=== PATIENT | female | born 1945 | race Hispanic/Latino ===

== ENCOUNTER → 2018-03-10 | Outpatient (CLI) | payer OTHER ==
--- NOTE | 2018-03-10 12:08 | Diagnostic Imaging Report ---
EXAMINATION: CT of the abdomen and pelvis without contrast. TECHNIQUE: Spiral CT images of the abdomen and pelvis were performed from the lung bases to the lesser trochanters. No intravenous contrast was given per renal stone protocol. Coronal and sagittal reformatted images were obtained. COMPARISON: The report from a CT scan performed at an outside facility was available for review. CLINICAL HISTORY:Renal calculi DISCUSSION: ABSENCE OF INTRAVENOUS CONTRAST DECREASES SENSITIVITY FOR DETECTION OF FOCAL LESIONS AND VASCULAR PATHOLOGY. ABDOMEN/PELVIS: LOWER THORAX: Subsegmental atelectasis or scar in the dependent portions of the lower lobes. HEPATOBILIARY:No focal hepatic lesion or intrahepatic biliary ductal dilatation. The gallbladder is unremarkable. SPLEEN: No splenomegaly. PANCREAS: No focal masses or ductal dilatation. ADRENALS: 1.5 cm right adrenal nodule has average internal attenuation 35 Hounsfield units. No left adrenal nodule. KIDNEYS/URETERS: Punctate nonobstructing calculi in the bilateral lower pole collecting systems as seen on series 3 image 62. Additional punctate calculi in the region of the left interpolar collecting system may be vascular in nature or located within the collecting system (series 3 image 51). Subcentimeter hypoattenuating lesions within both kidneys too small to further characterize though likely to represent cysts. Nonspecific bilateral perinephric inflammation. No hydronephrosis. No ureteral or bladder calculi. PELVIC ORGANS/BLADDER: The urinary bladder is collapsed around a Salmon catheter. The uterus is neutral in position with arcuate artery calcifications. No adnexal mass. PERITONEUM/RETROPERITONEUM: No ascites. No pneumoperitoneum. LYMPH NODES: No pelvic sidewall, retroperitoneal, or mesenteric lymphadenopathy. VESSELS: Extensive atherosclerotic vascular calcifications of the abdominal aorta, iliacs systems, and major visceral branches without aneurysmal dilatation. GI TRACT: Large amount of fecal material within the rectum. Large bowel otherwise shows no distention or wall thickening. The appendix is not definitively identified. Gastrostomy catheter is present within the distal gastric body. No small bowel dilatation to suggest obstruction. BONES AND SOFT TISSUES: Soft tissue defect along the right lower quadrant abdominal wall with underlying herniated omental fat may reflect presence of a prior drainage catheter or distal enteric feeding tube. Calcified injection granulomata along the flanks. left paramedian sacral decubitus ulcer without definite underlying osseous destructive change. The bones are diffusely osteopenic with multilevel degenerative disc changes and facet arthropathy of the lumbar spine. Partially visualized healed fracture deformities of the right fifth, sixth, seventh, and eighth ribs. Probable chronic moderate anterior compression deformity of L4. L5 laminectomy defect. IMPRESSION: Punctate bilateral nonobstructing renal calculi as above. Urinary bladder is collapsed around a Salmon catheter. Large amount of stool throughout the large bowel with rectal distention. Atherosclerotic vascular disease. Sacral decubitus ulcer without definite evidence of underlying osteomyelitis. Right adrenal nodule has been stable dating to 2013 per outside report, and most likely represents an adenoma. Signed by: Dr. Lloyd Middleton M.D. on 03/10/2018 12:05 PM
== END ==
LOC: CT 11:08
PROVIDERS: ATTEND Urology
DX: N20.0 Calculus of kidney (principal)
CPT/HCPCS: 74176

== ENCOUNTER → 2018-06-15 | Day surgery (SDC) | payer MEDICARE, OTHER ==
[~2018-06-15] MED LIST: BELLADONNA/OPIUM 30 MG SUPP RC ONE; BISACODYL5 MG PO; BUPIVACAINE 0.5%/EPI 30 ML SDV INJ ONE; CLONIDINE HCL0.3 MG PO; DEXAMETHASONE SOD PHOS INJ 4 MG/ML VIAL ONE; FENTANYL CITRATE/PF 100MCG/2 ML INJ ONE; GENTAMICIN 80MG/NS 100 ML 100 ML IV ONE; IOPAMIDOL 610MG/1ML 300 MG/ML VIAL IV ONE; LANTUS 3ML100 UNITS/ SQ; LIDOCAINE HCL 2% LOCAL INJ 5 ML SDV VIAL INJ ONE; LIPITOR20 MG; ONDANSETRON HCL INJ 2MG/ML 2ML 2 MG/ML VIAL ONE; ONDANSETRON HCL4 MG PO; PHENYLEPHRINE HCL 1% 10 MG/ML VIAL ONE; PIPER-TAZ 3.375 GM 50 ML ONE; PROPOFOL IV EMULSION 10 MG/ML 20 ML VIAL ONE; SEVOFLURANE INHAL SOLN 250 ML PEN BTL ONE; ULTRAM50 MG PO; VENLAFAXINE HCL75 MG PO
--- OUTSIDE RECORDS SUMMARY | 2018-06-15 06:03 | XMS REPORT ---
Author Author [facility] Organization [facility] Address Unknown Phone Unavailable Care Team Providers Care Sausage Inspector Name Role Phone MEME RAY Unavailable Unavailable Payers Payer Name Policy Type Policy Number Effective Date Expiration Date Problems This patient has no known problems. Allergies, Adverse Reactions, Alerts Allergy Name Allergy Type Status Severity Reaction(s) Onset Date Inactive Date Treating Clinician Comments No Known Allergies DA Active U 2017-12-07 00:00:00 Medications This patient has no known medications. Results Test Description Test Time Test Comments Text Results Atomic Results Result Comments CT ABDOMEN/PELVIS WO 2018-03-10 11:51:00 [facility] [address] [place], [place] [address] Patient Name: TORSTEN DORSEY MR #: [id number] : 1945 Age/Sex: 72/F Req #: [id number] Adm Physician: Ordered by: MEME RAY MD Report #: [id number] Location: [place] Room/Bed: Procedure: [id number] CT/CT ABDOMEN/PELVIS WO Exam Date: 03/10/18 Exam Time: 1130 REPORT STATUS: Signed EXAMINATION: CT of the abdomen and pelvis without contrast. TECHNIQUE: Spiral CT images of the abdomen and pelvis were performed from the lung bases to the lesser trochanters. No intravenous contrast was given per renal stone protocol. Coronal and sagittal reformatted images were obtained. COMPARISON: The report from a CT scan performed at an outside facility for was available for review. CLINICAL HISTORY:Renal calculi DISCUSSION: ABSENCE OF INTRAVENOUS CONTRAST DECREASES SENSITIVITY FOR DETECTION OF FOCAL LESIONS AND VASCULAR PATHOLOGY. ABDOMEN/PELVIS: LOWER THORAX: Subsegmental atelectasis or scar in the dependent portions of the lower lobes. HEPATOBILIARY:No focal hepatic lesion or intrahepatic biliary ductal dilatation. The gallbladder is unremarkable. SPLEEN: No splenomegaly. PANCREAS: No focal masses or ductal dilatation. ADRENALS: 1.5 cm right adrenal nodule has average internal attenuation 35 Hounsfield units. No left adrenal nodule. KIDNEYS/URETERS: Punctate nonobstructing calculi in the bilateral lower pole collecting systems as seen on series 3 image 62. Additional punctate calculi in the region of the left interpolar collecting system may be vascular in nature or located within the collecting system (series 3 image 51). Subcentimeter hypoattenuating lesions within both kidneys too small to further characterize though likely to represent cysts. Nonspecific bilateral perinephric inflammation. No hydronephrosis. No ureteral or bladder calculi. PELVIC ORGANS/BLADDER: The urinary bladder is collapsed around a Salmon catheter. The uterus is neutral in position with arcuate artery calcifications. No adnexal mass. PERITONEUM/RETROPERITONEUM: No ascites. No pneumoperitoneum. LYMPH NODES: No pelvic sidewall, retroperitoneal, or mesenteric lymphadenopathy. VESSELS: Extensive atherosclerotic vascular calcifications of the abdominal aorta, iliacs systems, and major visceral branches without aneurysmal dilatation. GI TRACT: Large amount of fecal material within the rectum. Large bowel otherwise shows no distention or wall thickening. The appendix is not definitively identified. Gastrostomy catheter is present within the distal gastric body. No small bowel dilatation to suggest obstruction. BONES AND SOFT TISSUES: Soft tissue defect along the right lower quadrant abdominal wall with underlying herniated omental fat may reflect presence of a prior drainage catheter or distal enteric feeding tube. Calcified injection granulomata along the flanks. left paramedian sacral decubitus ulcer without definite underlying osseous destructive change. The bones are diffusely osteopenic with multilevel degenerative disc changes and facet arthropathy of the lumbar spine. Partially visualized healed fracture deformities of the right fifth, sixth, seventh, and eighth ribs. Probable chronic moderate anterior compression deformity of L4. L5 laminectomy defect. IMPRESSION: Punctate bilateral nonobstructing renal calculi as above. Urinary bladder is collapsed around a Salmon catheter. Large amount of stool throughout the large bowel with rectal distention. Atherosclerotic vascular disease. Sacral decubitus ulcer without definite evidence of underlying osteomyelitis. Right adrenal nodule has been stable dating to 2013 per outside report, and most likely represents an adenoma. Signed by: Dr. Mable Johnson M.D. on 03/10/2018 12:05 PM Dictated By: MABLE JOHNSON MD [id number] Transcribed By: SHIVANI on 03/10/18 1205 COPY TO: MEME RAY MD
[2018-06-15 07:44] LABS: BASOPHILS % 0.2 % (0.0-1.0); EOSINOPHILS % 0.2 % (0.0-6.0); LYMPHOCYTES # (AUTO) 2.3 (1.0-3.2); MEAN CORPUSCULAR HEMOGLOBIN 27.8 pg (28-32); MEAN CORPUSCULAR HGB CONC 33.3 g/dL (31-35); MEAN CORPUSCULAR VOLUME 83.5 fL (81-99); MONOCYTES # (AUTO) 0.6 (0.2-0.8); MONOCYTES % 4.9 % (4.4-11.3); NEUTROPHILS # (AUTO) 9.9 (2.1-6.9); NEUTROPHILS % 76.4 % (38.7-80.0); PLATELET COUNT 377 x10e3/uL (140-360); RED BLOOD COUNT 4.67 x10e6/uL (3.6-5.1); RED CELL DISTRIBUTION WIDTH 17.3 % (11.7-14.4)
[2018-06-15 08:04] LABS: ANION GAP 16.4 mmol/L (8-16); BLOOD UREA NITROGEN 12 mg/dL (7-26); BUN/CREATININE RATIO 18 (6-25); CALCIUM 9.5 mg/dL (8.4-10.2); CARBON DIOXIDE 24 mmol/L (22-29); CHLORIDE 100 mmol/L (98-107); CREATININE, SERUM 0.68 mg/dL (0.57-1.11); EST GLOMERULAR FILTRATION RATE > 60 ML/MIN (60-); GLUCOSE 205 mg/dL (74-118); SODIUM 135 mmol/L (136-145)
[2018-06-15 08:07] LABS: POTASSIUM 5.4 mmol/L (3.5-5.1)
--- NOTE | 2018-06-15 08:40 | Diagnostic Imaging Report ---
EXAM: Abdomen 1 Views INDICATION: Retention. Infection. COMPARISON: CT abdomen and pelvis 03/10/2018. 01/14/2015. FINDINGS: Large amount of stool in the colon. No dilated loops of small bowel. No renal calculi. Diffuse vascular calcifications. No abnormal soft tissue masses. Severe degenerative changes in the lumbar spine and pelvis. IMPRESSION: Large amount of stool consistent with constipation. Signed by: Dr. Jeremy Betancourt M.D. on 06/15/2018 8:36 AM
[2018-06-15 10:50] VITALS: BP 132/73
--- NOTE | 2018-08-01 08:58 | Operative Report ---
DATE OF PROCEDURE: 06/15/2018 SURGEON: Glynn Kaplan MD PREOPERATIVE DIAGNOSES: 1. Urinary retention. 2. Urinary tract infections. 3. Atrophic vaginitis. POSTOPERATIVE DIAGNOSES: 1. Urinary retention. 2. Urinary tract infections. 3. Atrophic vaginitis. OPERATIONS PERFORMED: 1. Cystotomy and cystostomy (several procedures performed for the urinary retention to place a permanent suprapubic tube). 2. Cystourethroscopy with bilateral ureteral catheterization and retrograde ureteropyelography (several procedures performed for urinary tract infection). 3. Interpretation of retrograde ureteropyelography. 4. Supervision of fluoroscopy, no radiologist present. 5. Pelvic examination under anesthesia. ANESTHESIA: General. COMPLICATIONS: None. CLINICAL SUMMARY: Judit Montemayor is a 72-year-old woman with chronic urinary retention due to neurogenic bladder. She has had a previous stroke. She has urinary tract infection as well as history of stones. She has an atrophic right kidney. She has had a chronic catheter and is now brought to the operating room for placement of suprapubic tube. She and the family were aware of the risks of bleeding, infection, injury to adjacent structures, and need for additional procedures and elected to proceed. PROCEDURE IN DETAIL: Informed consent was verified. Judit Montemayor was preoperatively identified, taken the operating room, placed on the cystoscopy table in supine position. Anesthesia was uneventfully begun. The patient was then carefully and gently re-positioned in dorsal lithotomy position with all pressure points well padded. Her abdomen and genitalia were prepared and draped in the usual sterile fashion. A specialized [place] sound, which has been modified with a hole was then inserted into the patient's urethra and it was then utilized to tent up the anterior bladder wall towards the abdominal wall. We then made a small stab incision after infiltrating with local anesthesia and cut down onto the sound. Once the sound was pierced through the abdominal wall, it was tied to a Salmon catheter and then Salmon catheter was brought through the incision that we made and through the bladder and out of the urethral meatus. It was then disconnected by cutting the suture and then the Salmon catheter was gently pulled back until the tip of the Salmon catheter was just inside the urethra. The balloon was then inflated with water and the Salmon catheter was then pulled, thus stenting the anterior wall of the bladder up towards the abdominal wall. The catheter was then allowed to fall onto its natural position, and 2 separate sutures were placed on either side of the now suprapubic catheter to secure it further. The 22.5 Montenegrin cystoscope sheath with obturator in place was atraumatically inserted into the patient's urethra and bladder was drained. Panendoscopy revealed no suspicion mucosal lesions, no tumors, no stones, and no diverticula. The suprapubic cystostomy was in an appropriate position. There was mild erythema noted throughout the bladder as one would expect with chronic colonization. Normally positioned ureteral orifices were identified. There were no stones. An 8-Montenegrin catheter was inserted into each ureter and retrograde ureteropyelography was performed. Interpretation Of Retrograde Ureteropyelography: Contrast was instilled in a retrograde fashion bilaterally. Left side was unremarkable except for some mild J hooking. The calyces were sharp and delicate. The right ureter was unremarkable. The right kidney was definitely smaller. There was chronic appearing dilated renal pelvis. Nevertheless, unobstructed drainage was observed fluoroscopically bilaterally. We could not appreciate any stones on the fluoroscopic study of today. The patient's bladder was then drained, cystoscope was withdrawn. Sterile dressings were applied to the suprapubic area. Pelvic examination under anesthesia revealed atrophic vaginitis. No abnormal palpable pelvic masses could be appreciated. There was mild irritation and minimal erosion of the urethral meatus. The patient was then uneventfully reversed from anesthesia and taken to recovery room in stable condition. There were no complications to the procedure. She tolerated the procedure well. Plans will be to follow the patient up in the office in 5 to 6 weeks to change her cystostomy tube. Glynn MD Rosaura [place]/MODL /[id number] cc: Enzo Chopra MD
== END | disposition home or self-care (01) ==
LOC: OR 06:01
PROVIDERS: ATTEND Urology
DX: N31.9 Neuromuscular dysfunction of bladder, unspecified (principal); R33.8 Other retention of urine; N39.0 Urinary tract infection, site not specified; N95.2 Postmenopausal atrophic vaginitis; N26.1 Atrophy of kidney (terminal); N36.8 Other specified disorders of urethra; E11.9 Type 2 diabetes mellitus without complications; M19.90 Unspecified osteoarthritis, unspecified site; R53.1 Weakness; I10 Essential (primary) hypertension; E78.5 Hyperlipidemia, unspecified; I44.0 Atrioventricular block, first degree; Z79.4 Long term (current) use of insulin; Z87.442 Personal history of urinary calculi; Z86.73 Personal history of transient ischemic attack (TIA), and cerebral infarction without residual deficits
CPT/HCPCS: 36415; 51040; 74420; 80048; 82948; 85025; 93005; J1100; J1580; J2001; J2370; J2405; J2543; J2704; Q9967; 74018